=== PATIENT | male | born 1990 ===

== ENCOUNTER 2021-04-24 22:23 | Emergency (ER) | payer MEDICAID ==
[2021-04-24] MEDS ORDERED: HALOPERIDOL LACTATE 5 MG/1 ML INJ IM ONE (22:31)
--- NOTE | 2021-04-24 22:38 | Emergency Department Report ---
ED Psych HPI - General Stated Complaint: OVERDOSE Time Seen by Provider: 04/24/21 22:31 - History of Present Illness Initial Comments: Patient was brought in by family secondary to psychosis. He has been very paranoid. He believes people are after him. Patient states that he knows that people have been chasing him. This is been going on for several days now. He admits that he has been doing crystal meth. He has been snorting it. He states he has not been injecting it. He denies using other drugs. The family member that is with him states that he has been like this for a day and 1/2 to 2 days. They tried letting him rest but he did not seem to calm down. He keeps talking about people chasing him and being after him. They family brought him here for evaluation. He does not verbalize suicidal thoughts or homicidal thoughts. - Related Data Allergies Allergy/AdvReac Type Severity Reaction Status Date / Time No Known Allergies Allergy Verified 04/24/21 22:35 ED Review of Systems ROS: Stated complaint: OVERDOSE Other details as noted in HPI Comment: All other systems reviewed and negative Constitutional: denies: fever Eyes: denies: vision change ENT: denies: throat pain Respiratory: denies: cough Cardiovascular: denies: chest pain Endocrine: denies: unexplained weight loss Gastrointestinal: denies: abdominal pain Genitourinary: denies: dysuria Musculoskeletal: denies: back pain Skin: denies: rash Neurological: denies: headache Hematological/Lymphatic: denies: easy bruising ED Physical Exam - General Limitations: No Limitations, Other General appearance: alert - Head Head exam: Present: atraumatic, normocephalic, normal inspection - Eye Eye exam: Present: normal appearance, EOMI. Absent: scleral icterus - ENT ENT exam: Present: mucous membranes dry, normal external ear exam - Neck Neck exam: Present: normal inspection. Absent: meningismus - Respiratory Respiratory exam: Present: normal lung sounds bilaterally. Absent: respiratory distress - Cardiovascular Cardiovascular Exam: Present: normal rhythm, tachycardia - GI/Abdominal GI/Abdominal exam: Present: soft. Absent: tenderness - Extremities Exam Extremities exam: Present: normal capillary refill - Back Exam Back exam: Absent: CVA tenderness (R), CVA tenderness (L) - Neurological Exam Neurological exam: Present: alert, altered (He is paranoid and believes people are after him.), normal gait, other (Diffuse tremor). Absent: motor sensory deficit - Psychiatric Psychiatric exam: Present: agitated - Skin Skin exam: Present: other (Hot and diaphoretic) ED Course Vital Signs 04/24/21 04/24/21 04/24/21 22:35 23:25 23:26 Temperature 98.9 F Pulse Rate 128 H 104 H 100 H Respiratory 13 16 16 Rate Blood Pressure 119/67 Blood Pressure 144/92 [Left] O2 Sat by Pulse 94 93 93 Oximetry 04/24/21 04/24/21 04/25/21 23:30 23:46 00:00 Temperature Pulse Rate 100 H 94 H 94 H Respiratory 17 19 15 Rate Blood Pressure 118/67 118/67 108/67 Blood Pressure [Left] O2 Sat by Pulse 94 93 93 Oximetry 04/25/21 04/25/21 04/25/21 00:16 00:30 00:46 Temperature Pulse Rate 92 H 88 89 Respiratory 17 14 13 Rate Blood Pressure 108/67 107/55 108/67 Blood Pressure [Left] O2 Sat by Pulse 94 94 94 Oximetry 04/25/21 04/25/21 04/25/21 01:00 01:16 01:30 Temperature Pulse Rate 84 86 83 Respiratory 14 13 13 Rate Blood Pressure 101/59 101/59 109/59 Blood Pressure [Left] O2 Sat by Pulse 95 93 95 Oximetry 04/25/21 04/25/21 04/25/21 01:46 02:00 02:16 Temperature Pulse Rate 97 H 77 99 H Respiratory 12 14 13 Rate Blood Pressure 101/59 113/67 113/67 Blood Pressure [Left] O2 Sat by Pulse 96 97 97 Oximetry 04/25/21 02:32 Temperature Pulse Rate Respiratory Rate Blood Pressure 113/67 Blood Pressure [Left] O2 Sat by Pulse Oximetry - Reevaluation(s) Reevaluation #1: 04/24/21 22:37 Haldol was ordered. Old records reviewed. Reevaluation #2: 04/25/21 00:46 Patient was resting comfortably. We will observe until he is awake and then discharge. Reevaluation #3: 04/25/21 04:01 Patient is ambulatory at this time. He was discharged. ED Medical Decision Making - Lab Data Rhythm strip: Normal sinus rhythm without ectopy per monitor observe 10 seconds. - Medical Decision Making Patient presents with a drug-induced psychosis. He has no underlying psychiatric history. He presented with paranoid delusions after using methamphetamine. Patient was metabolically intact. He did not have any suicidal homicidal thoughts. Family was comfortable taking him home and he was subsequently discharged. He was not responding to extraneous stimuli at the time of discharge. He did not appear to be acutely intoxicated. Critical Care Time: No Critical care attestation.: If time is entered above; I have spent that time in minutes in the direct care of this critically ill patient, excluding procedure time. 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 Drink plenty of water. Return for problems. Follow-u p with your regular doctor or the referral physician. Referrals: ELYSSA JAMES MD [Primary Care Provider] - 3-5 Days RENALDO FAGAN MD [Staff Physician] - 3-5 Days
[2021-04-25 04:30] VITALS: BP 132/82
== END 2021-04-25 04:30 | disposition home or self-care (01) ==
LOC: ED 22:23
DX: F15.10 Other stimulant abuse, uncomplicated (principal); F19.950 Other psychoactive substance use, unspecified with psychoactive substance-induced psychotic disorder with delusions
CPT/HCPCS: 96372; 99282; J1630